=== PATIENT | female | born 1960 | race Caucasian/White ===

== ENCOUNTER 2017-07-07 17:00 | Emergency (ER) | payer MEDICARE, MEDICAID ==
[~2017-07-07] VITALS: Ht 165.1 cm; Wt 86.2 kg
[2017-07-07 17:00] VITALS: BP 135/75
[~2017-07-07 17:00] MED LIST changes: -ACETAMINOPHEN325 M1 ORAL; -BUTRANS1 EAC1 TD; -DIPHENHYDRAMINE25 M1 ORAL; -DOCUSATE SODIU100 MG ORAL; -DULCOLAX5 MG PO; -FAMOTIDINE20 MG ORAL; -GABAPENTIN300 MG ORAL; -GABAPENTIN800 MG ORAL; -LEVETIRACETAM500 MG ORAL; -PERCOCET 5-3251 EACH ORAL; -SENNA8.6 M2 PO; -TOPAMAX50 MG ORAL; -TYLENOL EXTRA500 MG ORAL; -ZANAFLEX2 M1 ORAL; -ZOFRAN4 M3 ORAL
[2017-07-07] MEDS ORDERED: HYDROmorphone 4mg tab ORAL ONE (17:15)
[2017-07-07] MEDS ORDERED: LORazepam 1mg tab ORAL ONE (17:15)
[2017-07-07] MEDS ORDERED: ACETAMINOPHEN325 M1 ORAL (18:58)
[2017-07-07] MEDS ORDERED: LEVETIRACETAM500 MG ORAL (18:58)
[2017-07-07] MEDS ORDERED: DULCOLAX5 MG PO (19:05)
[2017-07-07] MEDS ORDERED: TYLENOL EXTRA500 MG ORAL (19:05)
[2017-07-07] MEDS ORDERED: DOCUSATE SODIU100 MG ORAL (19:05)
[2017-07-07] MEDS ORDERED: DIPHENHYDRAMINE25 M1 ORAL (19:05)
[2017-07-07] MEDS ORDERED: FAMOTIDINE20 MG ORAL (19:08)
[2017-07-07] MEDS ORDERED: GABAPENTIN300 MG ORAL (19:08)
[2017-07-07] MEDS ORDERED: ZOFRAN4 M3 ORAL (19:08)
[2017-07-07] MEDS ORDERED: SENNA8.6 M2 PO (19:08)
[2017-07-07 19:15] VITALS: BP 130/70
[2017-07-07] MEDS ORDERED: PERCOCET 5-3251 EACH ORAL (19:18)
[2017-07-07] MEDS ORDERED: ZANAFLEX2 M1 ORAL (19:21)
[2017-07-07] MEDS ORDERED: TOPAMAX50 MG ORAL (19:24)
[2017-07-07] MEDS ORDERED: GABAPENTIN800 MG ORAL (19:25)
[2017-07-07] MEDS ORDERED: BUTRANS1 EAC1 TD (19:27)
[2017-07-07 19:45] VITALS: BP 116/80
--- NOTE | 2017-07-07 21:22 | Emergency Room Report ---
History of Present Illness General Chief Complaint: General Complaint Source: Patient Present Illness HPI [id number] BIBEMS from rehab facility for worsening chronic left lower leg pain Patient denies trauma Denies rash, swelling, fever/chills Believes it is her sciatica pain Has Pain mgmt doctor Is on [place] and buprinorphen per pain mgtm specialist Patient took 2 norco before coming to ED Requesting IV dilaudid Allergies: Coded Allergies: CITRUS AND DERIVATIVES (Unverified Allergy, Severe, Hives, 02/26/15) CEPHALEXIN (Verified Allergy, Intermediate, 02/26/15) SULFAMETHOXAZOLE (Verified Allergy, Intermediate, 02/26/15) TRIMETHOPRIM (Verified Allergy, Intermediate, 02/26/15) Patient History Past Medical History: see triage record Past Surgical History: other - "neck surgery" Pertinent Family History: none Social History: Denies: smoking, alcohol use, drug use Now: No Immunizations: UTD Reviewed Nursing Documentation: PMH: Agreed, PSxH: Agreed Nursing Documentation-PMH Hx Cardiac Problems: No Hx Cancer: No Hx Gastrointestinal Problems: No Hx Neurological Problems: Yes - chronic pain Hx Seizures: Yes Review of Systems All Other Systems: negative except mentioned in HPI Physical Exam Vital Signs Date Time Temp Pulse Resp B/P (MAP) Pulse Ox O2 Delivery O2 Flow Rate FiO2 07/07/17 16:49 98.1 78 16 130/70 98 Room Air Sp02 EP Interpretation: reviewed, normal General Appearance: normal inspection, well appearing, no apparent distress, alert, GCS 15, non-toxic, other - Patient tearful, anxious dramatic but consolable and redirectable Head: normocephalic, atraumatic Eyes: bilateral eye PERRL, bilateral eye EOMI ENT: normal ENT inspection, hearing grossly normal, normal voice Neck: normal inspection, full range of motion, supple, no bony tend Respiratory: normal inspection, lungs clear, normal breath sounds, no respiratory distress, no retraction, no wheezing Cardiovascular #1: regular rate, rhythm, no edema Gastrointestinal: normal inspection, normal bowel sounds, non tender, soft, no guarding, no hernia Genitourinary: no CVA tenderness Musculoskeletal: other - Left lower extremity: Full ROM. 5/5 strength. No rash. No calf swelling. Atraumatic. Hyperasthesia to even minor palpation. Neurologic: normal inspection, alert, oriented x3, responsive, trouble locator test desk III-XII nml as tested, motor strength/tone normal, speech normal Psychiatric: normal inspection, judgement/insight normal, mood/affect normal Skin: normal inspection, normal color, no rash Medical Decision Making Diagnostic Impression: Primary Impression: Sciatica Qualified Codes: M54.32 - Sciatica, left side Additional Impression: Left leg pain ER Course Chronic left leg sciatica Pain is isolated only to distal left calf and below knee No neuro deficits No sensation deficits Atraumatic ROM intact Patient likely opiod depdendant and narcotic seeking In shared decision making patient agrees to PO dilaudid and ativan DC back to SNF I informed Dr Kitchen patient would be going back to SNF Last Vital Signs Date Time Temp Pulse Resp B/P (MAP) Pulse Ox O2 Delivery O2 Flow Rate FiO2 07/07/17 19:45 73 18 116/80 Room Air 07/07/17 19:15 98.1 98 Status: improved Disposition: [facility] Condition: Improved Referrals: NANDO KITCHEN (PCP) Patient Instructions: Chronic Pain CHINO ROD M.D. Jul 07, 2017 21:22
== END 2017-07-07 20:03 | disposition home or self-care (01) ==
LOC: EDBD 17:00 → CANBEDREQ 17:17 → EMR 17:52
DX: M54.32 Sciatica, left side (principal); M79.605 Pain in left leg; Z88.2 Allergy status to sulfonamides; Z88.8 Allergy status to other drugs, medicaments and biological substances
CPT/HCPCS: 99284

== ENCOUNTER → 2017-07-07 | Outpatient (CLI) | payer MEDICARE, MEDICAID ==
[~2017-07-07] MED LIST: ACETAMINOPHEN325 M1 ORAL; ATIVAN1 MG ORAL; BUTRANS1 EAC1 TD; DEPAKOTE ER500 MG ORAL; DILAUDID2 MG IVP; DIPHENHYDRAMINE25 M1 ORAL; DOCUSATE SODIU100 MG ORAL; DULCOLAX5 MG PO; FAMOTIDINE20 MG ORAL; GABAPENTIN300 MG ORAL; GABAPENTIN800 MG ORAL; HEPARIN SO5000 UNIT2 SUBQ; LEVETIRACETAM500 MG ORAL; LORAZEPAM2 MG/1 M4 ORAL; PERCOCET 10-321 EACH ORAL; PERCOCET 5-3251 EACH ORAL; SENNA8.6 M2 PO; TOPAMAX50 MG ORAL; TYLENOL EXTRA500 MG ORAL; TYLENOL325 MG ORAL; ZANAFLEX2 M1 ORAL; ZOFRAN4 M3 ORAL; ZOLPIDEM TARTRAT5 MG ORAL
--- NOTE | 2017-07-07 11:33 | Diagnostic Imaging Report ---
Indications: PAIN back pain, lumbosacral radiculopathy Technique: Spiral acquisitions obtained through the lumbar spine. Multiplanar reconstructions were generated. No IV contrast utilized. Total dose length product 703 mGycm. CTDIvol(s) 24 mGy. Dose reduction achieved using automated exposure control Comparison: None Findings: There is very slight posterior offset of L2 on L3, and L3 on L4, presumably due to degenerative changes. The remainder of the bony alignment is unremarkable. There is severe degenerative disc narrowing with vacuum formation at T11-12, T12-L1, L1-L2, at L2-L3. Less severe degenerative disc narrowing with slight endplate irregularity is seen at L3-4. The L4-5 and L5-S1 discs are preserved. There is degenerative facet disease at essentially every level bilaterally. No acute fractures. No dislocations. At L2-3, there is moderate narrowing of the right neural foramen. The left neural foramen is preserved There is circumferential annular bulge and posterior osteophyte formation. This does not significantly narrow the spinal canal, however. At L3-4, there is circumferential annular bulge, which does not appear significantly narrow the spinal canal. There is mild narrowing of the right neural foramen. At L4-5, there is circumferential annular bulge. This does not significantly narrow the spinal canal. There is mild narrowing of the bilateral neural foramina due to facet hypertrophy. L5-S1, there is generalized circumferential interval. This does not appear to significantly narrow the spinal canal. The neural foramina are preserved. At the remaining disc levels, no significant disc bulge or protrusion, spinal stenosis, or neural foraminal stenosis The included extraspinal soft tissues are unremarkable. Impression: Degenerative changes, as detailed on a level by level basis above. No acute bony trauma The CT scanner at [facility] is accredited by the [employer] and the scans are performed using protocols designed to limit radiation exposure to as low as reasonably achievable to attain images of sufficient resolution adequate for diagnostic evaluation.
== END | disposition home or self-care (01) ==
LOC: CAT 10:05
DX: M54.17 Radiculopathy, lumbosacral region (principal)
CPT/HCPCS: 72131